=== PATIENT | male | born 1995 | race Caucasian/White ===

== ENCOUNTER 2017-09-29 12:13 | Emergency (ER) | payer OTHER ==
[~2017-09-29] VITALS: Ht 177.8 cm; Wt 81.7 kg
[2017-09-29] MEDS ORDERED: IBUPROFEN 800800 M1 PO (12:33)
[2017-09-29] MEDS ORDERED: ACETAMINOPHEN-1 EAC1 PO (12:33)
[2017-09-29] MEDS ORDERED: AMOXICILLIN 50500 MG PO (12:33)
[2017-09-29] MEDS ORDERED: LIDOCAINE VISC100 ML SWISH&SPIT (12:33)
[2017-09-29 12:41] VITALS: BP 122/68
== END 2017-09-29 12:41 | disposition home or self-care (01) ==
LOC: M.ERS 12:13
DX: K08.89 Other specified disorders of teeth and supporting structures (principal)